=== PATIENT | male | born 1995 | race Caucasian/White ===

== ENCOUNTER 2023-12-16 13:28 | Inpatient (IN) | payer SELFPAY ==
[2023-12-16] VITALS (10 sets, daily range): BP systolic 98–110; BP diastolic 58–74; PULSE 94–104; RESP 20–36; TEMP 36.9–37; O2SAT 92–98; BMI 28.9
--- NOTE | 2023-12-16 13:30 | ECG_ITS ---
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 Measurements Intervals [place] Rate: 101 P: 29 DE: 156 QRS: 30 QRSD: 89 T: 70 QT: 313 QTc: 407 Interpretive Statements SINUS TACHYCARDIA No previous ECG available for comparison Electronically Signed On 12-16-2023 14:24:31 CDT by Logna Fuentes M.D. [id number]
--- NOTE | 2023-12-16 13:37 | XR_ITS ---
WS: [id number] XR chest 1V portable [id number] REASON FOR EXAM: chest pain FINDINGS: Suboptimal inspiratory effort. The heart and the mediastinum are within normal limits. Central pulmonary veins are prominent. No acute pulmonary parenchymal or pleural abnormality is identified. Bony thorax intact without significant focal abnormality. XR/XR chest 1V portable [id number] IMPRESSION: No acute cardiopulmonary abnormality.
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
[2023-12-16] MEDS: sodium chloride 0.9% 1,000 ML 999 ML IV (13:52)
[2023-12-16 14:03] LABS: Basophils % 0.2 %; Eosinophils # 0.1 10^3/uL (0.0-0.8); Eosinophils % 0.4 %; Hematocrit 40.2 % (37-53); Lymphocytes # 1.8 10^3/uL (0.8-4.8); Lymphocytes % 11.7 %; Mean Corpuscular HGB Conc 32.3 g/dL (30-55); Mean Corpuscular Hemoglobin 29.6 pg (27-33); Mean Corpuscular Volume 91.6 fl (82-101); Monocytes # 1.2 10^3/uL (0.2-0.9); Monocytes % 7.8 %; Neutrophils # 12.48 10^3/uL (1.8-7.7); Neutrophils % 79.4 %; Nucleated Red Blood Cells % 0 %; Platelet Count 155 10^3/cmm (157-399); Red Blood Count 4.39 10^6/uL (3.85-5.65); Red Cell Distribution Width 13.8 % (12.1-15.1); White Blood Count 15.71 10^3/uL (3.29-11.43)
[2023-12-16 14:22] LABS: Alanine Aminotransferase 20 U/L (0-41); Albumin Level 3.7 g/dL (3.5-5.2); Alkaline Phosphatase 63 U/L (40-130); Anion Gap 14.8 (5-19); Aspartate Amino Transferase 19 U/L (0-40); Blood Urea Nitrogen 14 mg/dL (6-20); Calcium 8.1 mg/dL (8.5-10.5); Carbon Dioxide 23 mmol/L (22-29); Chloride 106 mmol/L (98-107); Creatine Phosphokinase 209 U/L (39-308); Creatinine Clr Calc Pharmacy 140.7411; Globulin 2.3 g/dL (1.3-4.6); Glomerular Filtration Rate 100.5 mL/min (90-130); Glucose 103 mg/dL (65-115); Osmolality Calculated 291 mOsm/kg (285-295); Potassium 3.8 mmol/L (3.5-5.1); Sodium 140 mmol/L (136-145); Total Bilirubin 0.4 mg/dL (0.15-1.2)
[2023-12-16 14:31] LABS: Troponin(5th) Baseline 245 ng/L (0-15)
--- NOTE | 2023-12-16 14:37 | CTR_ITS ---
PROCEDURE INFORMATION: Exam: CTA Chest With Contrast Exam date and time: 12/16/2023 2:53 PM Age: 28 years old Clinical indication: Dyspnea and tachypnea; Additional info: Tachy, SOB, elevated trop TECHNIQUE: Imaging protocol: Computed tomographic angiography of the chest with contrast. Exam focused on the arteries. 3D rendering (Not supervised by radiologist): MIP and/or 3D reconstructed images were created by the technologist. Radiation optimization: All CT scans at this facility use at least one of these dose optimization techniques: automated exposure control; mA and/or kV adjustment per patient size (includes targeted exams where dose is matched to clinical indication); or iterative reconstruction. Contrast material: OMNI 350; Contrast volume: 100 ml; Contrast route: INTRAVENOUS (IV); COMPARISON: CR XR chest 1V portable [id number] 12/16/2023 1:43 PM RADIATION DOSE METRICS: Total DLP (mGy-cm): 4701 FINDINGS: Pulmonary arteries: No filling defects identified within the pulmonary arteries to suggest pulmonary embolism. Aorta: No thoracic aortic aneurysm or dissection. Lungs: Bilateral lower lobe atelectasis/infiltrates. Pleural spaces: No pneumothorax. No pleural effusion. Heart: Trace pericardial effusion. Coronary arteries: No coronary artery calcification. Mediastinal space: Triangular shaped soft tissue density is noted within the anterior mediastinum compatible with residual thymic tissue. Lymph nodes: No mediastinal or hilar lymphadenopathy. No axillary lymphadenopathy. Liver: Diffuse low-attenuation of the liver compatible with fatty replacement. Bones/joints: No acute bony abnormality. Soft tissues: Subcutaneous soft tissues are unremarkable. CT/CT angio chest PE protcl [id number] IMPRESSION: 1. No filling defects identified within the pulmonary arteries to suggest pulmonary embolism. 2. Bilateral lower lobe atelectasis/infiltrates. 3. Diffuse low-attenuation of the liver compatible with fatty replacement.
[2023-12-16] MEDS: iohexol 350 mg/mL 500 mL Btl (per mL) IV (14:53)
[2023-12-16 15:03] LABS: C Reactive Protein 138.2 mg/L (0.0-4.9)
--- NOTE | 2023-12-16 15:06 | ECG_ITS ---
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 Measurements Intervals [place] Rate: 98 P: 169 WI: 151 QRS: 174 QRSD: 91 T: 94 QT: 321 QTc: 412 Interpretive Statements SINUS RHYTHM ARM LEADS REVERSED [INVERTED P AND QRS IN I] Compared to ECG 12/16/2023 13:30:40 Sinus tachycardia no longer present Electronically Signed On 12-18-2023 12:49:36 CDT by Logan Fuentes M.D. [id number]
--- NOTE | 2023-12-16 15:10 | ECG_ITS ---
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 Measurements Intervals [place] Rate: 99 P: 33 HI: 151 QRS: 29 QRSD: 92 T: 87 QT: 326 QTc: 419 Interpretive Statements SINUS RHYTHM Compared to ECG 12/16/2023 15:06:28 No significant changes Electronically Signed On 12-18-2023 12:49:29 CDT by Logan Fuentes M.D. [id number]
[2023-12-16 15:13] LABS: Troponin T (5th) Once 249 ng/L (0-15)
[2023-12-16 15:18] LABS: Erythrocyte Sedimentation Rate 14 mm/hr (0-10)
[2023-12-16 15:37] LABS: Adenovirus Not Detected (NOT DETECT); Chlamydia Pneumoniae Not Detected (NOT DETECT); Coronavirus 229E,HKU1,NL63,OC4 Not Detected (NOT DETECT); Human Metapneumovirus Not Detected (NOT DETECT); Human Rhinovirus/Enterovirus Not Detected (NOT DETECT); Influenza A Not Detected (NOT DETECT); Influenza A H1 Not Detected (NOT DETECT); Influenza A H1-2009 Not Detected (NOT DETECT); Influenza A H3 Not Detected (NOT DETECT); Influenza B Not Detected (NOT DETECT); Mycoplasma Pneumoniae Not Detected (NOT DETECT); Parainfluenza Virus Type 1 Not Detected (NOT DETECT); Parainfluenza Virus Type 2 Not Detected (NOT DETECT); Parainfluenza Virus Type 3 Not Detected (NOT DETECT); Parainfluenza Virus Type 4 Not Detected (NOT DETECT); Respiratory Syncytial Virus A Not Detected (NOT DETECT); Respiratory Syncytial Virus B Not Detected (NOT DETECT); SARS-COV-2 Not Detected (NOT DETECT)
[2023-12-16 15:57] LABS: Troponin 5 2HR 263.1 ng/L (0-15); Troponin 5 2HR Delta 18.1 ABS# (0-10)
--- NOTE | 2023-12-16 16:09 | USCV_ITS ---
Markel Ohara Age: 28 Gender: M : 1995 Exam Date: 12/16/2023 16:45 Ordering Phys: Dayami Arias Technologist: CT Exam Location: [facility] [place] Indication: pericarditis, elevated trop BP: 100 / 79 HR: 100 Rhythm: Sinus Technical Quality: Adequate MEASUREMENTS (Male / Female) Normal Values 2D ECHO LVOT Diameter 2.1 cm LV Ejection Fraction MOD 2C 56.1 % LV Ejection Fraction 2C AL 55.9 % LA Diameter 3.3 cm LA Sys Volume AL 32.2 cm cubed LA Sys Volume Index AL 14.6 cm cubed/m squared Aorta at Sinotubular Diameter 2.0 cm M-MODE LA Ao Ratio MM 1.4 AV Cusp Separation MM 2.6 cm DOPPLER AV Peak Velocity 102.0 cm/s AV Area Cont Eq vti 3.2 cm squared AV Area Cont Eq pk 2.7 cm squared MV Peak Velocity 88.0 cm/s MV Area PHT 3.6 cm squared Mitral E to A Ratio 1.4 TR Peak Velocity 101.0 cm/s TR Peak Gradient 4.1 mmHg TV Peak E Velocity 85.0 cm/s Right Atrial Pressure 3.0 mmHg Pulmonary Artery Systolic Pressu 7.1 mmHg PV Peak Velocity 94.5 cm/s FINDINGS Left Ventricle Left ventricle is normal in size. LV systolic function is normal with EF of 55-60%. No regional wall motion abnormalities. Right Ventricle Normal in size and function Right Atrium Normal in size. Interatrial septum is aneurysmal Left Atrium Normal in size Mitral Valve Structurally normal mitral valve. Trace mitral regurgitation. Aortic Valve Aortic valve is thickened. No significant stenosis or regurgitation. Tricuspid Valve Mild tricuspid regurgitation. Insufficient TR jet to calculate RVSP. Pulmonic Valve Not well visualized Pericardium Normal Aorta Normal in size IVC Appears to be normal CONCLUSIONS LV systolic function is normal with EF of 55-60% Interatrial septum is aneurysmal Trace mitral regurgitation Aortic valve is thickened. Mild tricuspid regurgitation No comparison studies are available. Logan Fuentes MD (Electronically Signed) Final Date: 17 Dec 2023 11:19 S
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
[2023-12-16 16:32] LABS: Amphetamines Screen Urine Positive (Negative); Barbiturates Screen Urine Negative (Negative); Benzodiazepines Screen Urine Negative (Negative); Cocaine Screen Urine Negative (Negative); Opiate Screen Urine Negative (Negative); PCP Screen Urine Negative (Negative); THC Screen Urine Positive (Negative)
[2023-12-16 16:57] LABS: Estmated Average Glucose 88; Hemoglobin A1C 4.7 % (4.0-6.0)
[2023-12-16 17:11] LABS: Thyroid Stimulating Hormone 0.92 uIU/mL (0.27-4.20)
[2023-12-16] MEDS: ibuprofen 800 mg tablet PO ×2 (17:21→22:08)
[2023-12-16] MEDS: predniSONE 20 mg Tablet 60 MG PO (17:21)
[2023-12-16] MEDS: enoxaparin 100 mg/mL Syringe 90 MG SUBCUT (17:21)
[2023-12-16] MEDS: morphine 4 mg/mL SDV 1 mL IVP (17:22)
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
--- NOTE | 2023-12-16 18:44 | PC.NURSE ---
received from er at 1745.report received.pt is alert and awake and oriented x 4.denies pain at present.st on monitor.oriented to room environment.instructed to notify staff for any pain,sob,or for any concerns at all.pt verb understanding of instructions
[2023-12-16] MEDS: colchicine 0.6 mg Tablet 0.599999999999999978 MG PO (19:29)
[2023-12-16] MEDS: cefTRIAXone 2,000 MG in sodium chloride 0.9% (plus) 50 ML 100 MG IV (19:31)
[2023-12-16] MEDS: vancomycin 1,250 MG/250 ML PIGGYBACK 250 MG IV (20:07)
[2023-12-16] MEDS: HYDROmorphone 1 mg/mL INJ 1 mL 0.400000000000000022 MG IVP (20:26)
[2023-12-16 22:08] LABS: Troponin 5 6HR Delta -38.7 ng/L (0-12)
[2023-12-16 22:09] LABS: Troponin 5 6HR 206.3 ng/L (0-15)
[2023-12-16 22:48] LABS: Creatine Phosphokinase 155 U/L (39-308); Lactate Dehydrogenase 219 U/L (135-225); NT Pro B Type Natriuretic Pept 2102 pg/mL (0-125)
[2023-12-17] VITALS (10 sets, daily range): BP systolic 96–110; BP diastolic 61–71; PULSE 72–94; RESP 18–30; TEMP 36.2–36.7; O2SAT 94–97
[2023-12-17] MEDS: vancomycin 1,250 MG/250 ML PIGGYBACK 250 MG IV ×2 (03:29→11:02)
[2023-12-17] MEDS: HYDROmorphone 1 mg/mL INJ 1 mL 0.400000000000000022 MG IVP ×3 (03:41→13:25)
[2023-12-17 04:26] LABS: Basophils % 0.1 %; Hematocrit 40.4 % (37-53); Lymphocytes % 10.2 %; Mean Corpuscular HGB Conc 31.9 g/dL (30-55); Mean Corpuscular Hemoglobin 29.3 pg (27-33); Mean Corpuscular Volume 91.8 fl (82-101); Mean Platelet Volume 11.1 fL (7.4-10.4); Monocytes # 0.5 10^3/uL (0.2-0.9); Monocytes % 4.9 %; Neutrophils # 8.21 10^3/uL (1.8-7.7); Neutrophils % 84.5 %; Nucleated Red Blood Cells % 0 %; Platelet Count 152 10^3/cmm (157-399); Red Cell Distribution Width 13.6 % (12.1-15.1); White Blood Count 9.72 10^3/uL (3.29-11.43)
[2023-12-17 04:49] LABS: Alanine Aminotransferase 44 U/L (0-41); Albumin Level 3.4 g/dL (3.5-5.2); Alkaline Phosphatase 90 U/L (40-130); Anion Gap 15.2 (5-19); Aspartate Amino Transferase 28 U/L (0-40); Blood Urea Nitrogen 12 mg/dL (6-20); Calcium 8.4 mg/dL (8.5-10.5); Carbon Dioxide 22 mmol/L (22-29); Chloride 104 mmol/L (98-107); Creatinine Clr Calc Pharmacy 173.6551; Globulin 3.3 g/dL (1.3-4.6); Glomerular Filtration Rate 134.3 mL/min (90-130); Glucose 151 mg/dL (65-115); Magnesium 2.4 mg/dL (1.7-2.3); Osmolality Calculated 287 mOsm/kg (285-295); Phosphorus 1.7 mg/dL (2.5-4.5); Potassium 4.2 mmol/L (3.5-5.1); Sodium 137 mmol/L (136-145); Total Bilirubin 0.2 mg/dL (0.15-1.2); Total Protein 6.7 g/dL (6.6-8.7)
--- NOTE | 2023-12-17 06:47 | P.PN_ITS ---
Subjective 2 Subjective: No significant events overnight Afebrile Leukocytosis improved Drug screen reviewed Will request tick panel Add doxycycline Vitals/I&O/Wt Last Vital Signs Temp 97.7 F 12/17/23 04:00 Pulse 72 12/17/23 06:13 Resp 27 H 12/17/23 04:00 BP 110/71 12/17/23 04:00 Pulse Ox 94 12/17/23 04:00 O2 Del Method Room Air 12/17/23 04:00 12/16/23 12/16/23 12/17/23 14:59 22:59 06:59 Intake Total 1300 / 1300 250 / 1550 Balance 1300 / 1300 250 / 1550 Weight last 48 hrs Weight 89.312 kg Weight 88.904 kg Weight 97.522 kg Physical Exam 2 Narrative: young male GCS 15 Nonfocal neuroexam Pleuritic pain on deep breathing Nonfocal neuroexam Currently on room air Afebrile Multiple tick bites rash on the body Abdomen soft Data 12/17/23 03:29 12/17/23 03:29 Micro: Microbiology 12/16/23 16:21 Blood Culture - Preliminary Blood SPECIMEN COLLECTED 12/16/23 16:18 Blood Culture - Preliminary Blood SPECIMEN COLLECTED A&P Assessment and plan (1) Chest pain: Qualifiers: Chest pain type: unspecified Qualified Code(s): R07.9 - Chest pain, unspecified (2) Pericarditis: Qualifiers: Chronicity: acute Pericarditis type: unspecified type Qualified Code(s): I30.9 - Acute pericarditis, unspecified (3) Polysubstance abuse: (4) Tick bites: Plan Pleuritic chest pain Echo revealed aortic Endocarditis needs to be ruled out Antibiotics were started on admission Cultures negative so far Afebrile Leukocytosis improved ESR not remarkably high Troponin trending down Echo reviewed no significant wall motion abnormality Troponin leak likely related to myocarditis versus pericarditis Grossly positive for methamphetamine as well Patient has multiple tick bites, will add doxycycline Pericarditis Currently on colchicine and ibuprofen Steroids on hold No sign of cardiac tamponade Patient smokes 1 pack/day, polysubstance abuse Full code Cardiac diet Appreciate cardiology recommendations Attestations 2 Medical Necessity Statement*: Continue medical management Diagnoses Chest pain, unspecified type R07.9 Chest pain type: unspecified Pericarditis I30.9 Chronicity: acute Pericarditis type: unspecified type Polysubstance abuse F19.10 Tick bites W57.XXXA
[2023-12-17] MEDS: FUROsemide 10 mg/mL SDV 2mL 20 MG IVP (09:02)
[2023-12-17] MEDS: cefTRIAXone 2,000 MG in sodium chloride 0.9% (plus) 50 ML 100 MG IV (10:08)
[2023-12-17] MEDS: enoxaparin 100 mg/mL Syringe 90 MG SUBCUT (10:09)
[2023-12-17] MEDS: colchicine 0.6 mg Tablet 0.599999999999999978 MG PO (10:09)
--- NOTE | 2023-12-17 11:27 | P.PN_ITS ---
Subjective 2 Subjective: Patient overall doing well Vitals/I&O/Wt Last Vital Signs Temp 98.0 F 12/17/23 11:17 Pulse 94 12/17/23 11:17 Resp 24 H 12/17/23 11:17 BP 96/61 12/17/23 11:17 Pulse Ox 95 12/17/23 11:17 O2 Del Method Room Air 12/17/23 11:17 12/16/23 12/17/23 12/17/23 22:59 06:59 14:59 Intake Total 1300 / 1300 250 / 1550 50 / 50 Balance 1300 / 1300 250 / 1550 50 / 50 Weight last 48 hrs Weight 196 lb 14.4 oz Weight 196 lb Weight 215 lb Data 12/17/23 03:29 12/17/23 03:29 Micro: Microbiology 12/16/23 16:21 Blood Culture - Preliminary Blood SPECIMEN COLLECTED 12/16/23 16:18 Blood Culture - Preliminary Blood SPECIMEN COLLECTED Attestations 2 Medical Necessity Statement*: Care expected to cross 2 midnights. Coding Level of Care Code Acute Code for [facility]
--- NOTE | 2023-12-17 15:45 | PC.NURSE ---
Very pleasant patient had been compliant with all medications and directions throughout the morning until 1320 when he rang the call light and told nurse he wanted to leave. Nurse tried to explain that he had an infection that needed to be treated with powerful antibiotics and that there was some concern for fluid and infection are the heart. He said no one told him what was wrong with him and nurse notified , who came and spoke with the patient. Nurse witness walk out of the room and he told her (me) that the patient was going to stay and to be careful about hypotension and the pain meds and nurse verbalized understanding. As sson as nurse made it up to the nurses' station, the patient was on the call light again and asked to leave AMA again. Nurse went down with papers and asked why he was leaving and he said I know what's causing all this and what the problem is, I just want out. IV was removed, AMA paperwork signed and patient was wheeled out by DEVELOPER ARCHITECT to his waiting ride.
--- NOTE | 2023-12-17 16:19 | PM.DCS ---
Discharge Providers Date of Admission: 12/16/23 16:39 Date of Discharge: December 17, 2023 Attending Provider at Admission: Phuong Mathur MD Attending Provider at Discharge: Phuong Mathur MD Primary Care Provider: CLEMENT Kenny Diagnoses at Discharge Discharge Diagnosis (1) Pericarditis: Status: Acute Qualifiers: Chronicity: acute Pericarditis type: unspecified type Qualified Code(s): I30.9 - Acute pericarditis, unspecified (2) Chest pain: Status: Acute Qualifiers: Chest pain type: unspecified Qualified Code(s): R07.9 - Chest pain, unspecified (3) Polysubstance abuse: Status: Acute (4) Tick bites: Status: Acute Reason for Visit Reason for Visit: SOB; CHEST PAIN Hospital Course Hospital Course Patient was being treated for pericarditis, source was likely 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, he had significant troponin leak, cardiology was consulted who recommended colchicine, high-dose ibuprofen, patient improved with IV fluid hydration and anti-inflammatory medications, pleuritic chest pain improved as well echo did not show any cardiac tamponade, 12/16 patient started getting agitated and wanted to leave against medical recommendations I counseled patient to stay in the hospital because of the concerns related to pericarditis myocarditis aortic valve thickening at young age however patient stayed noncompliant and left after signing AMA paperwork Discharge Data Studies Completed and Pending Completed Studies During Hospitalization Category Date Time Status CTA chest [CT angio chest PE protcl [id number]] Stat Cat Scan 12/16/23 14:37 Completed XR chest 1V portable [id number] Urgent Exams 12/16/23 13:37 Completed US echo complete [CV. echo complete* [id number]] Stat Ultrasound 12/16/23 16:09 Completed Pending at discharge Category Date Time Status Blood Culture Stat Lab 12/16/23 16:21 Results Vancomycin Trough Timed Lab 12/17/23 18:30 Ordered Radiology Impressions Chest X-Ray 12/16/23 13:37 IMPRESSION: No acute cardiopulmonary abnormality. Chest CTA 12/16/23 14:37 IMPRESSION: 1. No filling defects identified within the pulmonary arteries to suggest pulmonary embolism. 2. Bilateral lower lobe atelectasis/infiltrates. 3. Diffuse low-attenuation of the liver compatible with fatty replacement. Laboratory Results WBC 9.72 10^3/uL (3.29-11.43) 12/17/23 03: RBC 4.40 10^6/uL (3.85-5.65) 12/17/23 03: Hgb 12.90 g/dL (11.27-16.99) 12/17/23 03: Hct 40.4 % (37-53) 12/17/23 03: MCV 91.8 fl (82-101) 12/17/23 03: MCH 29.3 pg (27-33) 12/17/23 03: MCHC 31.9 g/dL (30-55) 12/17/23 03: RDW 13.6 % (12.1-15.1) 12/17/23 03: Plt Count 152 10^3/cmm (157-399) L 12/17/23 03: MPV 11.1 fL (7.4-10.4) H 12/17/23 03: Neut % (Auto) 84.5 % 12/17/23 03: Lymph % (Auto) 10.2 % 12/17/23 03: [place] % (Auto) 4.9 % 12/17/23 03: Eos % (Auto) 0.0 % 12/17/23 03: Baso % (Auto) 0.1 % 12/17/23 03: Neut # (Auto) 8.21 10^3/uL (1.8-7.7) H 12/17/23 03: Lymph # (Auto) 1.0 10^3/uL (0.8-4.8) 12/17/23 03: [place] # (Auto) 0.5 10^3/uL (0.2-0.9) 12/17/23 03: Eos # (Auto) 0.0 10^3/uL (0.0-0.8) 12/17/23 03: Baso # (Auto) 0.0 10^3/uL (0.0-0.1) 12/17/23 03: Nucleated RBC % (auto) 0 % 12/17/23 03: Nucleated RBCs # 0.0 /100WBC 12/17/23 03: ESR 14 mm/hr (0-10) H 12/16/23 14:00 Sodium 137 mmol/L (136-145) 12/17/23 03:29 Potassium 4.2 mmol/L (3.5-5.1) 12/17/23 03:29 Chloride 104 mmol/L (98-107) 12/17/23 03:29 Carbon Dioxide 22 mmol/L (22-29) 12/17/23 03:29 Anion Gap 15.2 (5-19) 12/17/23 03:29 BUN 12 mg/dL (6-20) 12/17/23 03:29 Creatinine 0.7 mg/dL (0.7-1.2) 12/17/23 03:29 GFR Calculation 134.3 mL/min (90-130) H 12/17/23 03:29 Glucose 151 mg/dL (65-115) H 12/17/23 03:29 Estimat Average Glucose 88 12/16/23 13:47 Hemoglobin A1c 4.7 % (4.0-6.0) 12/16/23 13:47 Calculated Osmolality 287 mOsm/kg (285-295) 12/17/23 03:29 Calcium 8.4 mg/dL (8.5-10.5) L 12/17/23 03:29 Phosphorus 1.7 mg/dL (2.5-4.5) L 12/17/23 03:29 Magnesium 2.4 mg/dL (1.7-2.3) H 12/17/23 03:29 Total Bilirubin 0.2 mg/dL (0.15-1.2) 12/17/23 03:29 AST 28 U/L (0-40) 12/17/23 03:29 ALT 44 U/L (0-41) H 12/17/23 03:29 Alkaline Phosphatase 90 U/L (40-130) 12/17/23 03:29 Lactate Dehydrogenase 219 U/L (135-225) 12/16/23 19:41 Creatine Kinase 155 U/L (39-308) 12/16/23 19:41 Troponin T 5th Gen ng/L 249 ng/L (0-15) H* 12/16/23 14:41 Troponin T Baseline 245 ng/L (0-15) H* 12/16/23 13:47 Troponin T 120 Minute 263.1 ng/L (0-15) H 12/16/23 15:17 Delta Troponin T 18.1 ABS# (0-10) H* 12/16/23 15:17 Troponin T Hi Sens 6Hr 206.3 ng/L (0-15) H 12/16/23 19:41 Troponin T Hi Sens 6Hr Delta -38.7 ng/L (0-12) L 12/16/23 19:41 C-Reactive Protein 170.0 mg/L (0.0-4.9) H 12/17/23 03:29 NT-Pro-B Natriuret Pep 2102 pg/mL (0-125) H 12/16/23 19:41 Total Protein 6.7 g/dL (6.6-8.7) 12/17/23 03:29 Albumin 3.4 g/dL (3.5-5.2) L 12/17/23 03:29 Globulin 3.3 g/dL (1.3-4.6) 12/17/23 03:29 TSH 0.92 uIU/mL (0.27-4.20) 12/16/23 13:47 Urine Opiates Screen Negative ng/mL (Negative) 12/16/23 15:41 Ur Barbiturates Screen Negative ng/mL (Negative) 12/16/23 15:41 Ur Phencyclidine Scrn Negative ng/mL (Negative) 12/16/23 15:41 Ur Amphetamines Screen Positive ng/mL (Negative) H 12/16/23 15:41 U Benzodiazepines Scrn Negative ng/mL (Negative) 12/16/23 15:41 Urine Cocaine Screen Negative ng/mL (Negative) 12/16/23 15:41 U Marijuana (THC) Screen Positive ng/mL (Negative) H 12/16/23 15:41 Adenovirus (PCR) Not detected (NOT DETECT) 12/16/23 13:50 C. pneumoniae DNA (PCR) Not detected (NOT DETECT) 12/16/23 13:50 Coronavirus 229E (PCR) Not detected (NOT DETECT) 12/16/23 13:50 Human Metapneumovir PCR Not detected (NOT DETECT) 12/16/23 13:50 Influenza A (H1) PCR Not detected (NOT DETECT) 12/16/23 13:50 Influ A (H1/09) PCR Not detected (NOT DETECT) 12/16/23 13:50 Influenza A (H3) PCR Not detected (NOT DETECT) 12/16/23 13:50 Influenza Type A (PCR) Not detected (NOT DETECT) 12/16/23 13:50 Influenza Type B (PCR) Not detected (NOT DETECT) 12/16/23 13:50 M. pneumoniae (PCR) Not detected (NOT DETECT) 12/16/23 13:50 Parainfluenza 1 (PCR) Not detected (NOT DETECT) 12/16/23 13:50 Parainfluenza 2 (PCR) Not detected (NOT DETECT) 12/16/23 13:50 Parainfluenza 3 (PCR) Not detected (NOT DETECT) 12/16/23 13:50 Parainfluenza 4 (PCR) Not detected (NOT DETECT) 12/16/23 13:50 RSV Type A (PCR) Not detected (NOT DETECT) 12/16/23 13:50 RSV Type B (PCR) Not detected (NOT DETECT) 12/16/23 13:50 Entero/Rhino (PCR) Not detected (NOT DETECT) 12/16/23 13:50 SARS-CoV-2 (PCR) Not detected (NOT DETECT) 12/16/23 13:50 Vitals Last Vital Signs Temp 98.0 F 12/17/23 11:17 Pulse 94 12/17/23 11:17 Resp 30 H 12/17/23 15:43 BP 96/61 12/17/23 11:17 Pulse Ox 96 12/17/23 15:43 O2 Del Method Room Air 12/17/23 11:17 Discharge Plan Discharge Patient Disposition: Left Against Medical Advice Condition: Stable Prescriptions: New methylprednisolone [Medrol (Angel)] 4 mg tablets,dose pack See Rx Instructions .ROUTE .COMPLEX Qty: 21 0RF Rx Instructions: orally per package directions colchicine 0.6 mg tablet 0.6 mg PO BID Qty: 20 0RF doxycycline hyclate 100 mg tablet 100 mg PO BID 7 Days Qty: 14 0RF aspirin 325 mg tablet,delayed release (DR/EC) 325 mg PO DAILY Qty: 60 0RF omeprazole 40 mg capsule,delayed release(DR/EC) 40 mg PO DAILY Qty: 60 0RF No Action No Known Home Medications Referrals: Jennifer Petersen FNP [Primary Care Provider] - Discharge Diet: Cardiac Discharge Activity: Increase activity as tolerated Patient Instructions: Opioid Safety, Post Heart Attack Stoplight Discharge Attestations Time Spent in Discharge Care*: greater than 30 min Quality Metrics Clinical Quality Measures [ No reported AMI, CVA or VTE this stay] Coding Level of Care Code Acute Code for Chg Fwd Diagnoses Pericarditis I30.9 Chronicity: acute Pericarditis type: unspecified type Chest pain, unspecified type R07.9 Chest pain type: unspecified Polysubstance abuse F19.10 Tick bites W57.XXXA
== END 2023-12-17 15:00 | disposition left against medical advice (07) | DRG 316 ==
LOC: ER 14:00 → CSU 16:39
PROVIDERS: Admitting Provider Internal Medicine; Emergency Provider Physician Assistant; PCP Nurse Practitioner Family; Visit Provider Internal Medicine
DX: I30.9 Acute pericarditis, unspecified (principal); F19.10 Other psychoactive substance abuse, uncomplicated; F17.210 Nicotine dependence, cigarettes, uncomplicated; R82.5 Elevated urine levels of drugs, medicaments and biological substances; T14.8XXA Other injury of unspecified body region, initial encounter; Y99.9 Unspecified external cause status
CPT/HCPCS: 36415; 71045; 71275; 80048; 80053; 80306; 82550; 83036; 83615; 83735; 83880; 84100; 84443; 84484; 85025; 85651; 86140; 87040; 87486; 87581; 87633; 93005; 93306; 96372; 96374; 96376; 99285; 99291; J0696; J1170; J1650; J1940; J2270; J3370; J7030; J7512; Q9967